=== PATIENT | female | born 1980 | race African-American/Black ===

== ENCOUNTER 2016-10-31 11:27 | Emergency (ER) | payer OTHER ==
[~2016-10-31 11:27] MED LIST: ATOR20TA PO; CHOL2000 PO; FAMO-63 PO; IBUP-1060 PO; METF500T4 PO; PANT40TA3 PO; PREN1TAB51 PO
[2016-10-31 11:44] VITALS: BP 148/100
--- NOTE | 2016-10-31 12:06 | RAD ---
Indication: Pain and popping in the left knee. Time of exam 11:52 AM 4 views of the left knee were obtained. There is mild medial compartmental joint space narrowing. No fracture, dislocation or effusion is identified. Impression: No acute bony abnormality is detected.
[2016-10-31] MEDS ORDERED: TRAM-29 PO (12:49)
--- NOTE | 2016-10-31 12:50 | PHYS DOC ---
Past Medical History Past Medical History: GERD Additional Past Medical Histor: hiatal hernia Past Surgical History: Tubal ligation Additional Past Surgical Histo: R ANKLE Alcohol Use: Occasionally Drug Use: None Adult General Chief Complaint Chief Complaint: KNEE INJURY HPI HPI Patient is a 36 year old female with history of acid reflex who presents today with left lateral knee pain that began 3 weeks ago while walking. Patient states she heard a pop sound from the knee. Patient denies falling. Review of Systems Review of Systems Constitutional: Denies fever or chills [] Eyes: Denies change in visual acuity, redness, or eye pain [] HENT: Denies nasal congestion or sore throat [] Musculoskeletal: Left lateral knee pain Integument: Denies rash or skin lesions [] Neurologic: Denies headache, focal weakness or sensory changes [] Endocrine: Denies polyuria or polydipsia [] Allergies Allergies Allergies Coded Allergies Type Severity Reaction Last Updated Verified No Known Drug Allergies 03/23/15 No Physical Exam Physical Exam Constitutional: Well developed, well nourished, no acute distress, non-toxic appearance. [] HENT: Normocephalic, atraumatic, bilateral external ears normal, oropharynx moist, no oral exudates, nose normal. [] Skin: Warm, dry, no erythema, no rash. [] Back: No tenderness, no CVA tenderness. [] Extremities: Left knee with no obvious deformity. Patient is overweight. Slight tenderness on palpation of the left lateral knee. Full range of motion to the left knee. Negative Kaushal sign, negative Bautista sign, negative anterior- posterior drawer sign to the left knee. +2 left pedal pulse. Cap refill less than 2 seconds the left lower extremity. Neurologic: Alert and oriented X 3, normal motor function, normal sensory function, no focal deficits noted. [] Psychologic: Affect normal, judgement normal, mood normal. [] Current Patient Data Vital Signs Vital Signs Date Time Temp Pulse Resp B/P (MAP) Pulse Ox O2 Delivery O2 Flow Rate FiO2 10/31/16 11:44 98.2 91 18 148/100 (116) 98 Room Air 98.2 EKG EKG [] Radiology/Procedures Radiology/Procedures [] Course & Med Decision Making Course & Med Decision Making Pertinent Labs and Imaging studies reviewed. (See chart for details) Patient is in the ED with left knee pain with no known injury. Left knee x-rays interpreted by radiologist are negative for any acute findings. Patient was discharged with instructions to follow-up with orthopedic doctor provided. Discharged with Ultram for pain. Ice elevation encouraged. Dragon Disclaimer Dragon Disclaimer This electronic medical record was generated, in whole or in part, using a voice recognition dictation system. Departure Departure Impression: Primary Impression: Left knee pain Disposition: HOME, SELF-CARE Condition: STABLE Referrals: NYDIA LOPEZ MD (PCP) TROY ZIMMERMAN MD Follow-up in 7 days Patient Instructions: Knee Pain Additional Instructions: You were seen for left knee pain. Your x-rays are negative for any acute findings. We highly recommend you follow-up with the provided orthopedic doctor in the next 7 days. Take the prescribed medicines as needed for pain. Ice and elevate the extremity. Scripts Tramadol Hcl (ULTRAM) 50 Mg Tablet 1 TAB PO Q6HRS, #30 TAB Prov: AMANUEL JOHNSON TIM 10/31/16 Problem Qualifiers Primary Impression: Left knee pain Chronicity: acute Qualified Codes: M25.562 - Pain in left knee AMANUEL JOHNSON [employer] OPER[employer] October 31, 2016 12:50
== END 2016-10-31 12:58 | disposition home or self-care (01) ==
LOC: ER 11:27
DX: M25.562 Pain in left knee (principal); K21.9 Gastro-esophageal reflux disease without esophagitis
CPT/HCPCS: 73564; 99284

== ENCOUNTER 2017-11-21 07:52 | Emergency (ER) | payer OTHER | END 2017-11-21 08:55 | disposition home or self-care (01) | LOC: ER 07:52 | DX: H10.9 Unspecified conjunctivitis (principal); E78.00 Pure hypercholesterolemia, unspecified; K21.9 Gastro-esophageal reflux disease without esophagitis; E11.9 Type 2 diabetes mellitus without complications | CPT/HCPCS: 99283 ==

== ENCOUNTER 2017-11-29 20:55 | Emergency (ER) | payer OTHER ==
[2017-11-29 21:40] LABS: URINE HCG POC HCG NEGATIVE (Negative)
[2017-11-29 21:41] LABS: POC GLUCOSE 94 mg/dL (70-99)
[2017-11-29] MEDS: diazePAM 5 MG TABLET PO (21:45)
[2017-11-29 22:16] LABS: BILIRUBIN,URINE NEGATIVE (NEG); CLARITY,URINE CLEAR; COLOR,URINE YELLOW; GLUCOSE,URINE NEGATIVE (NEG); NITRITE,URINE NEGATIVE (NEG); PROTEIN,URINE NEGATIVE (NEG-TRACE)
[2017-11-29 22:20] LABS: BACTERIA,URINE 0 /HPF (0-FEW); RBC,URINE 0 /HPF (0-2); SQUAMOUS EPITHELIAL CELL,UR MOD /LPF; WBC,URINE OCC /HPF (0-4)
== END 2017-11-29 22:42 | disposition home or self-care (01) ==
LOC: ER 20:55
DX: M54.42 Lumbago with sciatica, left side (principal); M54.41 Lumbago with sciatica, right side; R20.2 Paresthesia of skin; E78.00 Pure hypercholesterolemia, unspecified; K21.9 Gastro-esophageal reflux disease without esophagitis; E11.9 Type 2 diabetes mellitus without complications; Z98.51 Tubal ligation status; Z98.890 Other specified postprocedural states
CPT/HCPCS: 81001; 81025; 82962; 87086; 99284

== ENCOUNTER 2017-12-28 08:29 | Emergency (ER) | payer OTHER ==
[2017-12-28] MEDS: HYDROcodone/APAP 5/325MG 1 TAB TABLET PO (08:57)
== END 2017-12-28 10:26 | disposition home or self-care (01) ==
LOC: ER 10:26
DX: S82.892A Other fracture of left lower leg, initial encounter for closed fracture (principal); E78.00 Pure hypercholesterolemia, unspecified; K21.9 Gastro-esophageal reflux disease without esophagitis; M79.7 Fibromyalgia; E11.9 Type 2 diabetes mellitus without complications; W19.XXXA Unspecified fall, initial encounter; Y93.89 Activity, other specified; Y99.8 Other external cause status; Y92.89 Other specified places as the place of occurrence of the external cause
CPT/HCPCS: 73610; 99284

== ENCOUNTER 2019-08-25 08:24 | Emergency (ER) | payer MEDICAID, OTHER ==
[~2019-08-25] VITALS: Ht 165.1 cm; Wt 154.2 kg
[~2019-08-25 08:24] MED LIST changes: +DIAZ5TAB PO; +ERYT1OIN6 OP; +HYDR-3164 PO; +METF500T16 PO; -METF500T4 PO; -PANT40TA3 PO; +PANT40TA77 PO; +TRAM-48 PO
[2019-08-25 08:35] VITALS: BP 150/82
[2019-08-25] MEDS ORDERED: HYDROcodone/APAP 5/325MG 1 TAB TABLET PO ONE (09:00)
--- NOTE | 2019-08-25 09:01 | PHYS DOC ---
Past Medical History Past Medical History: Anxiety, Arthritis, Asthma, Diabetes-Type II, Fibro myalgia, GERD, High Cholesterol Additional Past Medical Histor: hiatal hernia, EDEMA, OBESITY Past Surgical History: Cholecystectomy, Tubal ligation Additional Past Surgical Histo: R ANKLE FX, DUODENAL SWITCH, HERNIA Smoking Status: Never Smoker Alcohol Use: Occasionally Drug Use: None Adult General Chief Complaint Chief Complaint: SORE THROAT HPI HPI Patient is a 39 year old female with history of dyslipidemia, diabetes me llitus, GERD, fibromyalgia, asthma, arthritis, anxiety who presents with complaint of sore throat. Patient complaining of sore throat with radiation to left ear and edema of her left side of neck since she woke up yesterday that gradually getting worse. Patient rated her pain 10 over 10 and denies fever and chills, sick contact, vomiting, cough and congestion . Patient states she had long time ago with the same problem with diagnosis of pharyngitis. Review of Systems Review of Systems Constitutional: Denies fever or chills [] Eyes: Denies change in visual acuity, redness, or eye pain [] HENT: Denies nasal congestion, reports earache and sore throat [] Respiratory: Denies cough or shortness of breath [] Cardiovascular: No additional information not addressed in HPI [] GI: Denies abdominal pain, nausea, vomiting, bloody stools or diarrhea [] : Denies dysuria or hematuria [] Musculoskeletal: Denies back pain or joint pain [] Integument: Denies rash or skin lesions [] Neurologic: Denies headache, focal weakness or sensory changes [] Endocrine: Denies polyuria or polydipsia [] All other systems were reviewed and found to be within normal limits, except as documented in this note. Current Medications Current Medications Current Medications Medications (Trade) Dose Ordered Sig/Carla Start Time Stop Time Status Last Admin Dose Admin Acetaminophen/ Hydrocodone Bitart (Lortab 5/325) 1 tab 1X ONCE 08/25/19 09:00 08/25/19 09:01 DC Allergies Allergies Allergies Coded Allergies Type Severity Reaction Last Updated Verified No Known Drug Allergies 03/23/15 No Physical Exam Physical Exam Constitutional: Well developed, well nourished, mild distress, non-toxic appearance. [] HENT: Normocephalic, atraumatic, bilateral external ears normal, oropharynx moist, bilateral pharyngeal erythema or edema born in left site without exudates, nose normal. [] Eyes: PERRLA, EOMI, conjunctiva normal, no discharge. [] Neck: Normal range of motion, left paracervical lymphadenopathy and mild edema, no tenderness, supple, no stridor. [] Cardiovascular:Heart rate regular rhythm, no murmur [] Lungs & Thorax: Bilateral breath sounds clear to auscultation [] Neurologic: Alert and oriented X 3, normal motor function, normal sensory function, no focal deficits noted. [] Psychologic: Affect normal, judgement normal, mood normal. [] Current Patient Data Vital Signs Vital Signs Date Time Temp Pulse Resp B/P (MAP) Pulse Ox O2 Delivery O2 Flow Rate FiO2 08/25/19 08:35 98.5 76 16 150/82 (104) 100 Room Air 98.5 EKG EKG [] Radiology/Procedures Radiology/Procedures [] Course & Med Decision Making Course & Med Decision Making Evaluation of patient in ER showed 39-year-old female patient with complaining of sore throat with her physician to left ear with cervical lymphadenopathy since yesterday. Patient was afebrile and had stable vital signs in ER. Patient has history of the same problem previously with diagnosis of pharyngitis. Plan discharge patient home with diagnosis of pharyngitis and prescription of Augmentin and [place]. Patient asking for prescription of Diflucan related to yeast infection after taking antibiotic. I've spoken with the patient and/or caregivers. I've explained the patient's condition, diagnosis and treatment plan based on information available to me at this time. I've answered the patient's and/or caregivers questions and addressed any concerns. The patient and/or caregivers have a good understanding the patient's diagnosis, condition and treatment plan as can be expected at this point. Vital signs have been stabilized. The patient's condition is stable for discharge from the emergency department. The patient will pursue further outpatient evaluation with her primary care provider or other designated consulting physician as outlined in the discharge instructions. Patient and/or caregivers are agreeable to this plan of care and follow-up instructions have been explained in detail. The patient and/or caregivers have received these instructions in written format and expressed understanding of these discharge instructions. The patient and her caregivers are aware that if any significant change in condition or worsening of symptoms should prompt him to immediately return to this of the closest emergency department. If an emergent department is not readily available I would enc ourage him to call 911. Annalisa Disclaimer Patriciaon Disclaimer This electronic medical record was generated, in whole or in part, using a voice recognition dictation system. Departure Departure Impression: Primary Impression: Acute pharyngitis Disposition: HOME, SELF-CARE (at 0909) Condition: IMPROVED Referrals: NYDIA LOPEZ MD (PCP) Patient Instructions: Viral and Bacterial Pharyngitis Additional Instructions: Drink plenty of liquids Follow-up with your primary care physician in 3-5 days Return to ER if not getting better Thank you for visiting [facility]. We appreciate you trusting us with your care. If any additional problems come up don't hesitate to return to visit us. Please follow up with your primary care provider so they can plan additional care if needed and know about the problem that you had. If symptoms worsen come back to the Emergency Department. Any concerning symptoms that start such as chest pain, shortness of air, weakness or numbness on one side of the body, running high fevers or any other concerning symptoms return to the ER. Scripts Fluconazole (DIFLUCAN) 150 Mg Tablet 1 TAB PO ONCE, #1 TAB Prov: DENIZ ANGUIANO MD 08/25/19 Hydrocodone/Apap 5-325 (NORCO 5-325 TABLET) 1 Each Tablet 1 TAB PO PRN Q6HRS PRN for PAIN, #10 TAB 0 Refills Prov: DENIZ ANGUIANO MD 08/25/19 Amoxicillin/Potassium Clav (AUGMENTIN 875-125 TABLET) 1 Each Tablet 1 TAB PO Q12HR, #20 TAB Prov: DENIZ ANGUIANO MD 08/25/19 Problem Qualifiers Primary Impression: Acute pharyngitis Pharyngitis/tonsillitis etiology: unspecified etiology Qualified Codes: J02.9 - Acute pharyngitis, unspecified DENIZ ANGUIANO MD Aug 25, 2019 09:01
[2019-08-25] MEDS ORDERED: HYDR-3164 PO ×2 (09:11→09:14)
[2019-08-25] MEDS ORDERED: AMOX1TAB61 PO (09:11)
[2019-08-25] MEDS ORDERED: FLUC150T PO (10:02)
== END 2019-08-25 10:04 | disposition home or self-care (01) ==
LOC: ER 08:24
DX: J02.9 Acute pharyngitis, unspecified (principal); R59.0 Localized enlarged lymph nodes; J45.909 Unspecified asthma, uncomplicated; E78.00 Pure hypercholesterolemia, unspecified; K21.9 Gastro-esophageal reflux disease without esophagitis; E11.9 Type 2 diabetes mellitus without complications; E66.9 Obesity, unspecified; Z68.43 Body mass index [BMI] 50.0-59.9, adult
CPT/HCPCS: 99283

== ENCOUNTER → 2020-10-15 | Outpatient (CLI) | payer MEDICAID ==
[~2020-10-15] MED LIST changes: +AMOX1TAB61 PO; +FLUC150T PO
--- NOTE | 2020-10-15 16:14 | RAD ---
EXAM: Pelvic sonogram. HISTORY: Dysfunctional uterine bleeding. TECHNIQUE: Sonographic imaging of the pelvis was performed. COMPARISON: None. FINDINGS: The uterus measures 8.8 x 5.2 x 4.7 cm. There is a thin endometrial stripe measuring less t beaulieu 2 mm. The ovaries are normal in size and demonstrate normal blood flow. There is a 3.6 cm cyst wi th internal septation involving the left ovary. There are nabothian cysts within the cervix measuring up to 10 mm, some of which demonstrate internal debris. There is an echogenic focus within the endom etrium likely due to calcification. IMPRESSION: 1. 3.6 cm complicated left ovarian cyst with internal septation. 2. Multiple nabothian cysts. 3. Possible punctate endometrial calcification. There is a thin endometrial stripe. Electronically signed by: Fariba Guzman MD (10/15/2020 4:12 PM) [id number]
== END ==
LOC: US 15:08
PROVIDERS: ATTEND Obstetrics & Gynecology
DX: N83.292 Other ovarian cyst, left side (principal); N93.8 Other specified abnormal uterine and vaginal bleeding; N88.8 Other specified noninflammatory disorders of cervix uteri
CPT/HCPCS: 76830; 76856

== ENCOUNTER → 2021-01-19 | Outpatient (CLI) | payer MEDICAID ==
--- NOTE | 2021-01-19 14:22 | RAD ---
US VENOUS REFLUX History: Reason: BILATERAL LEG EDEMA / Spl. Instructions: / History: Comparison: None. Discussion: Multiple longitudinal and transverse high resolution real-time images of the superficial venous syste m of bilateral lower extremity were obtained. Right greater saphenous vein: Measures 0.8 and 0.4 cm. No evidence of reflux. Right small saphenous vein: Measures 0.3 cm. No evidence of reflux. Left greater saphenous vein: Measures 0.6 and 0.3 cm. No evidence of reflux. Left small saphenous vein: Measures 0.2 cm. No evidence of reflux. Impression: 1. No evidence of reflux within the bilateral lower extremity superficial venous system. Electronically signed by: Dimitrios Ruelas DO (01/19/2021 2:19 PM) [id number]
--- NOTE | 2021-01-20 10:46 | CARD ---
MR#: [id number] Date of Study: 01/19/2021 Ordering Physician: SHAZIA MELGOZA, Referring Physician: SHAZIA MELGOZA Tech: Chiquis Bonilla [facility] APPROVED REPORT EXAM: Two-dimensional and M-mode echocardiogram with Doppler and color Doppler. Other Information Quality : GoodHR: 64bpm Rhythm : NSR INDICATION RISK FACTORS Hypertension Hyperlipidemia 2D DIMENSIONS RVDd2.9 (2.9-3.5cm)Left Atrium(2D)3.3 (1.6-4.0cm) IVSd1.0 (0.7-1.1cm)Aortic Root(2D)3.3 (2.0-3.7cm) LVDd4.7 (3.9-5.9cm)LVOT Diameter2.1 (1.8-2.4cm) PWd0.9 (0.7-1.1cm)LVDs3.3 (2.5-4.0cm) FS (%) 30.3 %SV60.0 ml LVEF(%)57.6 (>50%) Aortic Valve AoV Peak Onur.99.1cm/sAoV VTI23.7cm AO Peak GR.3.9mmHgLVOT Peak Onur.85.6cm/s AO Mean GR.2mmHgAVA (VMAX)2.92cm2 Mitral Valve MV E Oyrfownn58.0cm/sMV DECEL [id number] MV A Noufzwvp47.6cm/sE/A Ratio0.9 Pulmonary Valve PV Peak Wbzmqfmo27.3cm/s Tricuspid Valve TR P. Mntfpkyl540vw/sTR Peak Gr.20mmHg Pulmonary Vein S1 Vnbofbju97.6cm/sD2 Zzgxldod94.2cm/s PVa [id number] LEFT VENTRICLE The left ventricle is normal size. There is normal left ventricular wall thickness. The left ventricu lar systolic function is mildly diminished. EF 50%. There is mild global hypokinesis. The left ventri cular diastolic function and filling is normal for age. RIGHT VENTRICLE The right ventricle is normal size. There is normal right ventricular wall thickness. The right ventr icular systolic function is normal. ATRIA The left atrium size is normal. The right atrium size is normal. The interatrial septum is intact wit h no evidence for an atrial septal defect or patent foramen ovale as noted on 2-D or Doppler imaging. AORTIC VALVE The aortic valve is normal in structure and function. Doppler and Color Flow revealed no significant aortic regurgitation. There is no significant aortic valvular stenosis. MITRAL VALVE The mitral valve is normal in structure and function. There is no evidence of mitral valve prolapse. There is no mitral valve stenosis. Doppler and Color-flow revealed mild mitral regurgitation. TRICUSPID VALVE The tricuspid valve is normal in structure and function. Doppler and Color Flow revealed trace tricus pid regurgitation. Estimated PAP 23 mmHg. There is no tricuspid valve stenosis. PULMONIC VALVE The pulmonary valve is normal in structure and function. Doppler and Color Flow revealed trace pulmon ic valvular regurgitation. There is no pulmonic valvular stenosis. GREAT VESSELS The aortic root is normal in size. The IVC is normal in size and collapses >50% with inspiration. PERICARDIAL EFFUSION There is no evidence of significant pericardial effusion. Critical Notification Critical Value: No <Conclusion> The left ventricular systolic function is mildly diminished. EF 50%. There is mild global hypokinesis. Doppler and Color-flow revealed mild mitral regurgitation. Signed by : Ra Abdi, Electronically Approved : 01/20/2021 10:45:57
== END ==
LOC: ECHO 08:53
PROVIDERS: ATTEND Internal Medicine Cardiovascular Disease
DX: I34.0 Nonrheumatic mitral (valve) insufficiency (principal); R60.9 Edema, unspecified
CPT/HCPCS: 93306; 93970

== ENCOUNTER → 2021-04-12 | Outpatient (CLI) | payer MEDICAID ==
[~2021-04-12] MED LIST changes: +REGADENOSON 0.4 MG/5 ML DISP.SYRIN. IV ONE
--- NOTE | 2021-04-12 17:13 | RAD ---
MR#: [id number] Date of Study: 04/12/2021 Ordering Physician: SHAZIA MELGOZA, Referring Physician: MERCEDEZ CROWLEY Tech: RT Lacie (R) (N) APPROVED REPORT Test Type: Pharmacological Stress Nurse/Tech: Zo Jaffe R.N. Test Indications: acute on chronic diastolic heart failure Cardiac History: asthma, heart failure, Medications: see ehr Medical History: see ehr Resting ECG: sr Resting Heart Rate: 72 bpm Resting Blood Pressure: 141/80mmHg Pretest Chest Pain: No chest pain Nurse/Tech Notes lungs cta, heart tones regular Consent: The procedure was explained to the patient in lay terms. Informed consent was witnessed. Dave eout was entered into [employer]. History and Stress Test performed by MELISSA Moore, TWYLA (R) (N) Pharm. Details Pharmacologic stress testing was performed using 0.4mg per 5ml of regadenoson given intravenously ove r 7-10 seconds. Stress Symptoms No chest pain or symptoms. POST EXERCISE Reason for Termination: Infusion complete Target HR: No Max HR: 124 bpm Max Blood Pressure: 133/83mmHg Chest Pain: No. Arrhythmia: No. ST Change: No. INTERPRETATION Stress EKG Conclusion: The resting EKG shows a sinus rhythm with slight nonspecific T wave changes. The stress EKG showed no significant changes from baseline. No EKG evidence of stress-induced ischemia. Imaging Protocol IMAGE PROTOCOL: Rest Tc-99m/stress Tc-99m 1 day Rest: Stress: Viability: Radiopharm.Tc99m TzhuhqnjmVd36d Sestamibi Bnvk47cYi 30mCi Duration 15min. 10min. Img Date 04/12/2021 04/12/2021 Inj-Img Skyj72uem. 60min. Rest Admin Site:IV - Right AntecubitalAdministrator:MELISSA Moore ARRT (R)(N) Stress Admin Site: IV - Right AntecubitalAdministrator: MELISSA Moore ARRT (R)(N) STRESS DATA End Diast. Vol.102.0mlAv. Heart Rate86.0bpm End Syst. Vol.28.0mlCO Index BSA0.0L/min Myocardial Kdei323.0gEject. Ayasqned87.0% Stress Rates Pk. Fill Rate3.50EDV/secLVtime Pk. Fill 102.88msec Pk. Empty Rate3.99ESV/secLVtime Pk. Munzx575.16msec 1/3 Pk. Fill1.98EDV/sec Stress Scores Regional WT0.00Summed WT0.00 Regional WM0.00Summed WM0.00 LV Perfusion The stress images show no significant defects. The rest images are technically difficult. Wall Motion Left ventricular ejection fraction is 70% with no regional wall motion abnormalities. LV Perf. Quant 17 Seg. SSS3.00 17 Seg. SRS26.00 17 Seg. SDS0.00 Stress Defect Extent (% LAD)4.40Rest Defect Extent (% LAD)60.60Rev. Defect Extent (% LAD)2.50 Stress Defect Extent (% LCX) 6.30Rest Defect Extent (% LCX)43.80Rev. Defect Extent (% LCX)6.30 Stress Defect Extent (% RCA)5.60Rest Defect Extent (% RCA)87.80Rev. Defect Extent (% RCA)2.20 Stress Defect Extent (% ABRAN)8.50Rest Defect Extent (% ABRAN)60.90Rev. Defect Extent (% ABRAN)5.90 Conclusion 1. No EKG evidence of stress-induced ischemia. 2. Nuclear imaging shows normal stress scans. 3. Normal LV systolic function with an ejection fraction of 70%. 4. Low risk Lexiscan nuclear stress test. Signed by : Marcus Cuevas MD Electronically Approved : 04/12/2021 17:12:56
--- NOTE | 2021-04-12 18:19 | PDOC ---
Provider Note Date of Service: DATE: 04/12/21 TIME: 18:15 Provider Note Called for IV start. #20 gauge catheter placed with ultrasound on first attempt. Good blood return and catheter flushed easily. Sterile OPsite dressing placed and taped in place. Daniel Vides MD Justifications for Admission Other Justification DANIEL VIDES MD Apr 12, 2021 18:19
== END ==
LOC: NM 10:27
PROVIDERS: ATTEND Internal Medicine Cardiovascular Disease
DX: I50.33 Acute on chronic diastolic (congestive) heart failure (principal)
CPT/HCPCS: 78452; 93017; A9500; J2785